=== PATIENT | female | born 1990 | race American Indian/Alaskan Native ===

== ENCOUNTER 2018-02-07 05:25 | Inpatient (IN) | payer MEDICAID ==
[2018-02-07] MEDS ORDERED: PITOCin/NS 20 UNIT/1000ML DRIP 20,000 MILLIUNITS/1,000 ML BAG IV ONE ×2 (05:43→06:08)
[2018-02-07 05:57] LABS: Hematocrit 39.7 % (30.3-42.9); Mean Corpuscular HGB Conc 33 % (30-34); Mean Corpuscular Hemoglobin 28 pg (28-32); Mean Corpuscular Volume 87 fl (79-97); Platelet Count 260 K/mm3 (140-440); Red Blood Count 4.59 M/mm3 (3.65-5.03)
[2018-02-07] MEDS ORDERED: MINERAL OIL PO PRN (06:05)
[2018-02-07] MEDS ORDERED: XYLOCAINE 2% INFILTRATI ONE (06:05)
[2018-02-07] MEDS ORDERED: BRETHINE SUB-Q PRN (06:05)
[2018-02-07] MEDS ORDERED: BRETHINE IVP PRN (06:05)
[2018-02-07] MEDS: MOTRIN PO SCH ×3 (06:09→18:07)
[2018-02-07] MEDS ORDERED: PITOCin/NS 20 UNIT/1000ML DRIP 20 UNITS/1,000 ML BAG IV SCH ×2 (07:00→09:00)
[2018-02-07] MEDS ORDERED: LACTATED RINGERS 1,000 ML IV SCH (07:00)
[2018-02-07] MEDS ORDERED: MILK OF MAGNESIA PO PRN (08:57)
[2018-02-07] MEDS ORDERED: PHENERGAN PO PRN (08:57)
[2018-02-07] MEDS ORDERED: PHENERGAN PR PRN (08:57)
[2018-02-07] MEDS ORDERED: DULCOLAX PR PRN (08:57)
[2018-02-07] MEDS ORDERED: ZOFRAN IV PRN (08:57)
[2018-02-07] MEDS ORDERED: TUCKS PAD TP PRN (08:57)
[2018-02-07] MEDS ORDERED: LANSINOH TP PRN (08:57)
[2018-02-07] MEDS ORDERED: TYLENOL PO PRN (08:57)
[2018-02-07] MEDS ORDERED: BENADRYL PO PRN (08:57)
[2018-02-07] MEDS ORDERED: SODIUM CHLORIDE FLUSH SYRINGE 10 ML IV NR (09:00)
--- NOTE | 2018-02-07 09:03 | History and Physical Report ---
History of Present Illness Date of examination: 02/07/18 Date of admission: 02/07/18 05:25 Chief complaint: Labor History of present illness: Pt is a 27yo BF EDC 02/07/18; EGA 40 0/7 weeks presents to L&D via EMS in labor C/C/V/0 She received care at [facility], however records are not available and GBS is unknown. Past History Past Medical History: no pertinent history INPATIENT PHARMACIST History: abnormal PAP smear, syphilis Social history: no significant social history, single - Obstetrical History Expected Date of Delivery: 02/07/18 Actual Gestation: 40 Week(s) 1 Day(s) : 2 Medications and Allergies Allergies Allergy/AdvReac Type Severity Reaction Status Date / Time No Known Allergies Allergy Verified 02/07/18 05:44 Home Medications Medication Instructions Recorded Confirmed Last Taken Type Ferrous Sulfate [Feosol] 325 mg PO BID 02/07/18 02/07/18 2 Days Ago History ~02/05/18 21/Iron Fu/Folic Acid 1 each PO 02/07/18 1 Day Ago History [ Complete Caplet] ~02/06/18 Active Meds: Active Medications Acetaminophen (Tylenol) 650 mg PO Q4H PRN PRN Reason: Pain MILD(1-3)/Fever >100.5/SIEGEL Acetaminophen/Hydrocodone Bitart ([place] 5/325) 2 each PO Q6H PRN PRN Reason: Pain, Moderate (4-6) Bisacodyl (Dulcolax) 10 mg NH BID PRN PRN Reason: Constipation Diphenhydramine HCl (Benadryl) 25 mg PO Q6H PRN PRN Reason: Itching Diphtheria/Tetanus/Acell Pertussis (Boostrix) 0.5 ml IM .ONCE ONE Stop: 02/08/18 08:58 Docusate Sodium (Colace) 100 mg PO BID NELY Ephedrine Sulfate (Ephedrine Sulfate) 10 mg IV Q2M PRN PRN Reason: Hypotension Ferrous Sulfate (Feosol) 325 mg PO BID NELY Lactated Ringer's (Lactated Ringers) 1,000 mls @ 125 mls/hr IV DIRECT NELY Oxytocin/Sodium Chloride (Pitocin/Ns 20 Unit/1000ml Drip) 20 units in 1,000 mls @ 125 mls/hr IV DIRECT NELY Oxytocin/Sodium Chloride (Pitocin/Ns 20 Unit/1000ml Drip) 20 units in 1,000 mls @ 250 mls/hr IV DIRECT NELY Ibuprofen (Motrin) 600 mg PO Q6HR NELY Last Admin: 02/07/18 06:09 Dose: 600 mg Magnesium Hydroxide (Milk Of Magnesia) 30 ml PO HS PRN PRN Reason: Constipation Measles/Mumps/Rubella Vaccine Live (M-M-R Ii Vaccine) 0.5 ml SUB-Q .ONCE ONE Stop: 02/08/18 08:58 Mineral Oil (Mineral Oil) 30 ml PO QHS PRN PRN Reason: Constipation Multi-Ingredient Ointment (Lansinoh) 1 applic TP PRN PRN PRN Reason: Sore Nipples Multivitamins/Iron/Calcium ( Vitamin) 1 each PO QDAY NELY Ondansetron HCl (Zofran) 4 mg IV Q8H PRN PRN Reason: Nausea And Vomiting Promethazine HCl (Phenergan) 25 mg NH Q6H PRN PRN Reason: Nausea And Vomiting Promethazine HCl (Phenergan) 25 mg PO Q6H PRN PRN Reason: Nausea And Vomiting Sodium Chloride (Sodium Chloride Flush Syringe 10 Ml) 10 ml IV PRN NR Terbutaline Sulfate (Brethine) 0.25 mg SUB-Q ONCE PRN PRN Reason: Hyperstimulation/Hypertonicity Terbutaline Sulfate (Brethine) 0.25 mg IVP ONCE PRN PRN Reason: Hyperstimulation/Hypertonicity Witch Libby/Glycerin (Tucks Pad) 1 each TP PRN PRN PRN Reason: Hemorrhoid/cleansing/soothing Review of Systems All systems: negative - Vital Signs Vital signs: Vital Signs Pulse Pulse Ox 78 100 02/07/18 05:28 02/07/18 05:28 Temp Pulse Resp BP Pulse Ox 98.2 F 75 18 128/72 100 02/07/18 05:47 02/07/18 06:58 02/07/18 06:09 02/07/18 06:54 02/07/18 06:58 - Physical Exam Breasts: Positive: deferred Cardiovascular: Regular rate Lungs: Positive: Clear to auscultation Abdomen: Positive: normal appearance Genitourinary (Female): Positive: normal external genitalia Uterus: Positive: enlarged Extremities: Positive: normal - Obstetrical FHR: category 1 Uterine Contraction Monitor Mode: External Cervical Dilatation: 10 Cervical Effacement Percentage: 100 station: 0 Uterine Contraction Pattern: Regular Uterine Tone Measurement Phase: Contraction Uterine Contraction Intensity: Strong/Firm Results Result Diagrams: 02/07/18 20:51 Abnormal lab results 02/07/18 Range/Units 05:30 RDW 16.0 H (13.2-15.2) % All other labs normal. Assessment and Plan - Patient Problems (1) 40 weeks gestation of Onset Date: 02/07/18 Current Visit: Yes Status: Acute Plan to address problem: A: IUP @ 40 0/7 weeks in labor Unknown GBS P: Admit to L&D for expectant vaginal delivery IV Ampicillin Obtain Medical records.
--- NOTE | 2018-02-07 09:05 | Procedure Note ---
OB Delivery Note - Delivery Date of Delivery: 02/07/18 Surgeon: NAKITA BRITO Estimated blood loss: 100cc - Vaginal Delivery presentation: vertex Delivery position: OA Intrapartum events: precipitous labor- <3hr Delivery induction: none Delivery augmentation: rupture of membranes Delivery monitor: external FHT, external uterine Route of delivery: Delivery placenta: spontaneous Delivery cord: nuchal cord (x1), 3 umbilical vessels Episiotomy: none Delivery laceration: none Delivery repair: vicryl Anesthesia: none Delivery comments: delivered OA and placed on Mom's chest for [id number] bonding and delayed cord clamping - A at 1 minute: 8 at 5 minutes: 9 Gender: Male (2928gms)
[2018-02-07] MEDS: NORCO 5/325 PO PRN ×2 (09:15→20:48)
[2018-02-07] MEDS: COLACE PO SCH ×2 (10:39→22:30)
[2018-02-07] MEDS: PRENATAL VITAMIN PO SCH (10:39)
[2018-02-07] MEDS: FEOSOL PO SCH ×2 (10:39→22:30)
[2018-02-07 21:16] LABS: Hematocrit 34.5 % (30.3-42.9); Hemoglobin 11.2 gm/dl (10.1-14.3)
[2018-02-08] MEDS: MOTRIN PO SCH ×4 (00:23→18:44)
[2018-02-08] MEDS ORDERED: M-M-R II VACCINE SUB-Q ONE (06:00)
[2018-02-08] MEDS ORDERED: BOOSTRIX IM ONE (06:00)
--- NOTE | 2018-02-08 09:01 | Progress Note ---
Assessment and Plan - Patient Problems (1) 40 weeks gestation of Onset Date: 02/07/18 Current Visit: Yes Status: Resolved (2) (normal spontaneous vaginal delivery) Onset Date: 02/08/18 Current Visit: Yes Status: Resolved Plan to address problem: A: S/P - PPD #1 Doing well Asymptomatic anemia - stable H/O +RPR - treated P: May go home tomorrow. 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 Bleeding improved. Patient reports: appetite normal, voiding normally, pain well controlled, flatus , ambulating normally, no dizzy ambulation, no nauseated : doing well, bottle feeding Objective - Vital Signs Latest vital signs: Vital Signs Temp Pulse Resp BP BP Pulse Ox 02/08/18 00:10 98.3 F 87 18 141/96 97 02/07/18 18:07 18 02/07/18 16:33 98.2 F 80 20 118/77 99 02/07/18 12:04 98.4 F 72 20 126/77 98 02/07/18 09:15 18 Intake and Output 02/07/18 02/08/18 02/08/18 22:59 06:59 14:59 Intake Total 480 480 Output Total 800 Balance -320 480 Intake: Oral 480 480 Output: Urine 800 Void 800 Other: Total, Intake Amount 240 240 Total, Output Amount 800 # Voids Void 1 1 - Exam Breasts: Present: deferred Cardiovascular: Present: Regular rate Lungs: Present: Clear to auscultation Abdomen: Present: normal appearance, soft Uterus: Present: normal, firm, fundal height below umbilicus Extremities: Present: normal - Labs Labs: Laboratory Tests 02/07/18 02/07/18 02/07/18 05:30 05:30 05:30 WBC 10.2 RBC 4.59 Hgb 13.0 Hct 39.7 MCV 87 MCH 28 MCHC 33 RDW 16.0 H Plt Count 260 RPR Titer 1:2 RPR Reactive Hep Bs Antigen HIV 1&2 Antibody Rapid HIV P24 Antigen Blood Type O POSITIVE Antibody Screen Negative 02/07/18 02/07/18 02/07/18 18:11 18:11 20:51 WBC RBC Hgb 11.2 Hct 34.5 MCV MCH MCHC RDW Plt Count RPR Titer RPR Hep Bs Antigen Non-reactive HIV 1&2 Antibody Rapid Non react HIV P24 Antigen Non react Blood Type Antibody Screen
[2018-02-08] MEDS: COLACE PO SCH ×2 (10:44→23:28)
[2018-02-08] MEDS: FEOSOL PO SCH ×2 (10:44→23:29)
[2018-02-08] MEDS: NORCO 5/325 PO PRN ×2 (10:44→23:29)
[2018-02-08] MEDS: PRENATAL VITAMIN PO SCH (10:44)
--- NOTE | 2018-02-08 13:32 | Discharge Summary ---
Providers - Providers Date of Admission: 02/07/18 05:25 Date of discharge: 02/09/18 Attending physician: NAKITA BRITO Primary care physician: NAKITA BRITO Hospitalization Reason for admission: active labor, IUP at term Delivery: Episiotomy: none Other procedures: none complications: none Discharge diagnosis: IUP at term delivered baby: male Hospital course: Unremarkable. 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 Plan - Discharge Medications Prescriptions: Ferrous Sulfate [Feosol 325 MG tab] 325 mg PO BID #60 tablet Ibuprofen [Motrin 600 MG tab] 600 mg PO Q6HR #30 tablet Vit-Fe Fumar-FA [ Vitamin] 1 each PO QDAY #30 tablet - Provider Discharge Summary Activity: routine, no sex for 6 weeks, no heavy lifting 4 weeks, no strenuous exercise Diet: routine Instructions: routine Additional instructions: [] Smoking cessation referral if applicable(refer to patient education folder for contact #) [] Refer to [facility] Booklet Call your doctor immediately for: * Fever > 100.5 * Heavy vaginal bleeding ( >1 pad per hour) * Severe persistent headache * Shortness of breath * Reddened, hot, painful area to leg or breast * Drainage or odor from incision. * Keep incision clean and dry at all times and follow doctor's instructions regarding bathing/showering - Follow up plan Follow up: NAKITA BRITO MD [Primary Care Provider] - 6 Weeks JOCELYN SPENCER CNM [Advanced Practice Nurse] - 6 Weeks
[2018-02-09] MEDS: MOTRIN PO SCH (05:21)
[2018-02-09 09:19] VITALS: BP 135/90
== END 2018-02-09 16:00 | disposition home or self-care (01) | DRG 775 ==
LOC: LD 05:25 → OB 07:24
PROVIDERS: ADMIT Obstetrics & Gynecology; ATTEND Obstetrics & Gynecology
PROC: 10E0XZZ Delivery of Products of Conception, External Approach (ICD-10-PCS; principal; 2018-02-07)
PROC: 10907ZC Drainage of Amniotic Fluid, Therapeutic from Products of Conception, Via Natural or Artificial Opening (ICD-10-PCS; 2018-02-07)
PROC: 3E0234Z Introduction of Serum, Toxoid and Vaccine into Muscle, Percutaneous Approach (ICD-10-PCS; 2018-02-08)
DX: O69.81X0 Labor and delivery complicated by cord around neck, without compression, not applicable or unspecified (principal); O62.3 Precipitate labor; Z3A.40 40 weeks gestation of pregnancy; Z37.0 Single live birth; O90.81 Anemia of the puerperium; D64.9 Anemia, unspecified; Z23 Encounter for immunization
CPT/HCPCS: 36415; 85014; 85018; 85027; 86592; 86593; 86706; 86780; 86850; 86900; 86901; 87806; 90471; 90715; 99211; A6250; G0463; J2590